=== PATIENT | female | born 2005 | race Caucasian/White ===

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

== ENCOUNTER 2024-03-07 20:59 | Outpatient (REF) | payer OTHER, SELFPAY | END 2024-03-07 21:00 | disposition home or self-care (01) | LOC: NCHCN 20:59 | PROVIDERS: PCP Pediatrics; Visit Provider Nurse Practitioner Family | DX: N39.0 Urinary tract infection, site not specified (principal); B96.29 Other Escherichia coli [E. coli] as the cause of diseases classified elsewhere | CPT/HCPCS: 87077; 87086; 87186 ==

== ENCOUNTER 2024-04-10 17:13 | Outpatient (REF) | payer OTHER, SELFPAY | END 2024-04-10 17:14 | disposition home or self-care (01) | LOC: NCHCN 17:13 | PROVIDERS: PCP Pediatrics; Visit Provider Nurse Practitioner Family | DX: R35.0 Frequency of micturition (principal) | CPT/HCPCS: 87086 ==

== ENCOUNTER 2025-02-13 11:33 | Outpatient (REF) | payer MEDICAID, SELFPAY ==
[2025-02-14 12:44] LABS: Chlamydia Result Negative (Negative); GC Result Negative (Negative)
== END 2025-02-13 11:34 | disposition home or self-care (01) ==
LOC: NCHCN 11:33
PROVIDERS: PCP Nurse Practitioner Family; Visit Provider Nurse Practitioner Family
DX: Z11.3 Encounter for screening for infections with a predominantly sexual mode of transmission (principal)
CPT/HCPCS: 87491; 87591